=== PATIENT | female | born 1985 | race Caucasian/White ===

== ENCOUNTER → 2016-07-22 | Outpatient (REF) | payer BC ==
[2016-07-22 13:46] LABS: MEAN CORPUSCULAR HEMOGLOBIN 28.6 pg (27.0-33.0); MEAN CORPUSCULAR HGB CONC 32.6 g/dl (32.0-36.5); MEAN CORPUSCULAR VOLUME 87.8 fl (80.0-96.0); RED CELL DISTRIBUTION WIDTH 12.6 % (11.5-14.5); WHITE BLOOD COUNT 5.6 K/mm3 (4.0-10.0)
[2016-07-22 13:58] LABS: HCG, SERUM QUANTITATIVE 176 MIU/ML
[2016-07-22 14:06] LABS: CONTROL LINE INT CTR LINE PRESENT; HIV SCRN NEGATIVE (NEGATIVE); HIV SCRN1 NEGATIVE (NEGATIVE)
[2016-07-22 14:19] LABS: HBsAg Prenatal NEGATIVE (NEGATIVE)
== END ==
LOC: M LAB REF 12:39
PROVIDERS: ATTEND Obstetrics & Gynecology
DX: O36.80X0 Pregnancy with inconclusive fetal viability, not applicable or unspecified (principal); Z3A.00 Weeks of gestation of pregnancy not specified

== ENCOUNTER → 2016-08-03 | Outpatient (REF) | payer BC | LOC: M LAB REF 14:17 | PROVIDERS: ATTEND Obstetrics & Gynecology | DX: O02.81 Inappropriate change in quantitative human chorionic gonadotropin (hCG) in early pregnancy (principal) ==

== ENCOUNTER → 2016-08-19 | Outpatient (REF) | payer BC | LOC: M LAB REF 13:05 | PROVIDERS: ATTEND Advanced Practice Midwife | DX: Z34.91 Encounter for supervision of normal pregnancy, unspecified, first trimester (principal) ==

== ENCOUNTER → 2016-10-14 | Outpatient (REF) | payer BC | LOC: M LAB REF 12:55 | PROVIDERS: ATTEND Obstetrics & Gynecology | DX: Z31.430 Encounter of female for testing for genetic disease carrier status for procreative management (principal) ==

== ENCOUNTER → 2016-11-11 | Outpatient (REF) | payer BC | LOC: M LAB REF 12:21 | PROVIDERS: ATTEND Advanced Practice Midwife | DX: Z34.82 Encounter for supervision of other normal pregnancy, second trimester (principal) ==

== ENCOUNTER → 2016-12-30 | Outpatient (CLI) | payer BC ==
[2016-12-30 15:24] LABS: MEAN CORPUSCULAR HEMOGLOBIN 27.9 pg (27.0-33.0); MEAN CORPUSCULAR VOLUME 84.4 fl (80.0-96.0); RED CELL DISTRIBUTION WIDTH 12.9 % (11.5-14.5)
[2017-01-02 10:55] LABS: WHITE BLOOD COUNT 10.2 K/mm3 (4.0-10.0)
== END ==
LOC: M LAB 13:41
PROVIDERS: ATTEND Obstetrics & Gynecology
DX: Z34.82 Encounter for supervision of other normal pregnancy, second trimester (principal)

== ENCOUNTER 2017-04-02 06:13 | Inpatient (IN) | payer BC ==
[~2017-04-02] VITALS: Ht 162.6 cm; Wt 80.2 kg
[2017-04-02] VITALS (30 sets, daily range): BP systolic 73–137; BP diastolic 47–84
[2017-04-02] MEDS ORDERED: LUNE2TAB23 PO (07:12)
[2017-04-02 07:40] LABS: BASO # 0.1 10^3/uL (0.0-0.2); BASO % 0.5 % (0.0-1.0); EOS # 0.1 10^3/uL (0.0-0.50); EOS % 0.7 % (0.0-3.0); IMMATURE GRANULOCYTE % 0.7 % (0-0); LYMPH # 2.2 10^3/uL (1.5-4.5); LYMPH % 20.1 % (24.0-44.0); MEAN CORPUSCULAR HEMOGLOBIN 23.6 pg (27.0-33.0); MEAN CORPUSCULAR HGB CONC 31.1 g/dl (32.0-36.5); MEAN CORPUSCULAR VOLUME 75.9 fl (80.0-96.0); MONO # 0.8 10^3/uL (0.0-0.8); MONO % 7.1 % (0.0-5.0); NEUTROPHILS # 7.6 10^3/uL (1.8-7.7); NEUTROPHILS % 70.9 % (36.0-66.0); PLATELET COUNT, AUTOMATED 254 10^3/uL (150-450); RED CELL DISTRIBUTION WIDTH 17.4 % (11.5-14.5); WHITE BLOOD COUNT 10.7 10^3/uL (4.0-10.0)
[2017-04-02] MEDS ORDERED: LACTATED RINGER'S 1000 ML IV STA (08:48)
[2017-04-02] MEDS ORDERED: LR 1,000 ML IV SCH (09:16)
[2017-04-02] MEDS ORDERED: OXYTOCIN 30 UNITS IN 0.9% NaCl 500ML IV BAG (J2590) As Ordered ONE (09:18)
[2017-04-02] MEDS ORDERED: OXYTOCIN DRIP 30 UNITS in APPROPRIATE DILUENT 1 EA IV SCH ×2 (09:30→19:12)
--- NOTE | 2017-04-02 10:05 | HPEPDOC ---
Obstetrical History & Physical General Date of Admission Apr 02, 2017 at 06:13 Primary Care Physician: RENE MCGILL CNM History of Present Illness Patient is a 28-year-old female who is a at 40 weeks 5 days with an SHALA of 03/28/17 based off of her LMP and consistent with her 1st trimester ultrasound. She initiated care in her 1st trimester at [facility]. Her care h been uncomplicated. She was seen at the [facility] for evidence in her anatomy ultrasound of a hemivertebrae. A complete and detailed anatomical survey was normal at the [facility]. She presents to L&D for induction of labor. Reports active movement. Denies contractions, leaking of fluid, or vaginal bleeding. Chief Complaint: Induction of labor Information Provided By: Patient Age: 31 : 3 Term: 1 Pre-term: 0 Abortions: 1 Livin Care Care: Good Care Dating Final EDC: Mar 28, 2017 Final EDC by: LMP LMP: Jun 21, 2016 EGA at Admission: 40.5 Antepartum Course Diagnos(e)s Anemia Height (inches): 64 Pre- weight (lbs.): 144 Admission Weight (lbs.): 172 Change in Weight (lbs.): 28 Past Medical History Past Obstetrical History : Past Obstetrical History: Multigravida Gestation: 41 Type of Delivery: Spontaneous Vaginal Del. (May 2009) Sex of : Female (weighting 8 lbs 1 oz. ) Complications: No FAMILY NURSE History: Spontaneous (November 2014 SAB 5 weeks), Abnormal Pap (2000) , History of STD (chlamydia 2003) Past Medical History Surgical History: Denies/None Family History Significant Family History: Cancer, Hypertension Social History Marital Status: Single Family situation: Spouse/partner home Psychosocial History: Depression (took celexa from 2014 to 2016) * Smoker: non-smoker Alcohol: Denies Drugs: denies Abuse Violence Screening Have you been hit/kicked/slapp: No Have you been sexually assault: No Imunizations Tdap status: declined Influenza Status: declined Allergies Coded Allergies: No Known Drug Allergy (Verified Allergy, Unknown, 08/06/12) Medications Scheduled Eszopiclone (Lunesta) 2 Mg Tab, 2 MG PO DAILY Physical Examination Physical Examination GENERAL: Alert and oriented times three. BREAST: . ABDOMEN: Gravid and non-tender to touch. FETUS: Is vertex (VTX) by sterile vaginal examination (SVE), fetus is vertex ( VTX) by German. HEART RATE: Regular rate and rhythm. LUNGS: Clear to auscultation (CTA). EXTREMITIES: No edema. No clonus. Deep tendon reflexes (DTRs) + . Vital Signs/I&O Vital Signs Date Time Temp Pulse Resp B/P (MAP) Pulse Ox O2 Delivery O2 Flow Rate FiO2 04/02/17 08:14 71 18 110/72 (85) 04/02/17 07:39 97.3 I&O- Last 24 Hours up to 6 AM 04/03/17 06:00 Intake Total 100 ml Output Total 200 ml Balance -100 ml Laboratory Data 24H LABS Laboratory Tests 2 04/02/17 06:34: Serology Scanned Report Hepatitis B Testing 04/02/17 07:34: Immature Granulocyte % (Auto) 0.7H, White Blood Count 10.7H, Red Blood Count 4.28, Hemoglobin 10.1L, Hematocrit 32.5L, Mean Corpuscular Volume 75.9L, Mean Corpuscular Hemoglobin 23.6L, Mean Corpuscular Hemoglobin Concent 31.1L, Red Cell Distribution Width 17.4H, Platelet Count 254, Neutrophils (%) (Auto) 70.9H , Lymphocytes (%) (Auto) 20.1L, Monocytes (%) (Auto) 7.1H, Eosinophils (%) (Auto ) 0.7, Basophils (%) (Auto) 0.5, Neutrophils # (Auto) 7.6, Lymphocytes # (Auto) 2.2, Monocytes # (Auto) 0.8, Eosinophils # (Auto) 0.1, Basophils # (Auto) 0.1, Immature Granulocyte # (Auto) 0.1H, Nucleated Red Blood Cells % (auto) 0.0 04/02/17 07:58: CBC/BMP Laboratory Tests 04/02/17 07:34 Red Blood Count 4.28, Mean Corpuscular Volume 75.9 L, Mean Corpuscular Hemoglobin 23.6 L, Mean Corpuscular Hemoglobin Concent 31.1 L, Red Cell Distribution Width 17.4 H, Neutrophils (%) (Auto) 70.9 H, Lymphocytes (%) (Auto ) 20.1 L, Monocytes (%) (Auto) 7.1 H, Eosinophils (%) (Auto) 0.7, Basophils (%) (Auto) 0.5, Neutrophils # (Auto) 7.6, Lymphocytes # (Auto) 2.2, Monocytes # ( Auto) 0.8, Eosinophils # (Auto) 0.1, Basophils # (Auto) 0.1 Urine Culture: No Growth Pertinent Laboratoy Data Blood Type: O+ RBC Antibody Screen: Negative HIV: Negative Hepatitis B: Negative Hepatitis C: Negative Rapid Plasma Reagin: Nonreactive Rubella: Immune Chlamydia/Gonorrhea: Negative Group B Streptococcus: Negative Quad Screen Test: Negative Glucose Tolerance Test: 115 Anatomy Ultrasound Ultrasound Date: Mar 24, 2017 Placenta Location: Anterior Normal Anatomy: Yes Placenta Previa: No Estimated Weight (grams): 4296 (GUILLERMO: 23.8 cm) Steroid Therapy Steroid Therapy: No Vaginal Examination Dilation: 3 cm Effacement: 80+% Station: -3 Cervical Consistency: Soft Cervical Position: Anterior Presentation: Cephalic presentation Position: Vertex (occiput) Assessment Heart Rate (FHR): 135 Variability: Moderate Accelerations: Positive Decelerations: None Tocometer Contractions: Yes Frequency: irregular Duration: greater than 60 seconds Strength: palpated as mild Multi-drug resistant Organism: No history of MDRO Assessment/Plan Assessment IUP at 40.5 weeks gestation GBS negative Induction of labor-elective Category I FHR tracing Plan Admit to L&D. Counseled on risks, benefits, and alternatives of induction of labor. Diet: clears. Group B Streptococcus negative. Labs and intravenous per unit protocol. Pitocin ordered for induction. Lactated Ringers per order. Anticipate cervical change and normal spontaneous delivery. RENE MCGILL CNM Apr 02, 2017 10:04
--- NOTE | 2017-04-02 12:15 | IPNPDOC ---
Text Note Date of Service The patient was seen on 04/02/17. NOTE SUBJECTIVE: Patient reports feeling contractions. Desires and epidural. OBJECTIVE: VS stable. FHR: 140, moderate variability, positive accelerations- 15x15, variable deceleration noted after rupture. Contractions every 2 to 5 minutes. AROM after consent to a large amount of clear fluid. SVE: 5/100/-2. ASSESSMENT: IUP at 40.5 weeks gestation, active labor PLAN: Patient to receive an epidural. Anticipate cervical change and . VS,Fishbone, I+O VS, Fishbone, I+O Laboratory Tests 04/02/17 07:34 Red Blood Count 4.28, Mean Corpuscular Volume 75.9 L, Mean Corpuscular Hemoglobin 23.6 L, Mean Corpuscular Hemoglobin Concent 31.1 L, Red Cell Distribution Width 17.4 H, Neutrophils (%) (Auto) 70.9 H, Lymphocytes (%) (Auto ) 20.1 L, Monocytes (%) (Auto) 7.1 H, Eosinophils (%) (Auto) 0.7, Basophils (%) (Auto) 0.5, Neutrophils # (Auto) 7.6, Lymphocytes # (Auto) 2.2, Monocytes # ( Auto) 0.8, Eosinophils # (Auto) 0.1, Basophils # (Auto) 0.1 Vital Signs Date Time Temp Pulse Resp B/P (MAP) Pulse Ox O2 Delivery O2 Flow Rate FiO2 04/02/17 11:00 78 20 115/75 (88) 04/02/17 10:30 97.5 I&O- Last 24 Hours up to 6 AM 04/03/17 06:00 Intake Total 2100 ml Output Total 200 ml Balance 1900 ml RENE MCGILL CNM Apr 02, 2017 12:15
[2017-04-02] MEDS ORDERED: FENTANYL 2MCG/ML ROPIVACAINE 0.2% IN 0.9% NACL 200ML IVBAG As Ordered ONE (12:16)
[2017-04-02] MEDS ORDERED: NALOXONE INJ 0.4 MG/1 ML VIAL (J2310) IV PRN (14:00)
[2017-04-02] MEDS ORDERED: diphenhydrAMINE INJ 50MG/ML VIAL (J1200) IV PRN (14:00)
[2017-04-02] MEDS ORDERED: LACTATED RINGER'S 1000 ML IV PRN (14:00)
[2017-04-02] MEDS ORDERED: EPIDURAL/PCA KEYS XX PRN (14:00)
[2017-04-02] MEDS ORDERED: ePHEDrine SULFATE 25 MG/5 ML(5MG/ML) SYRINGE IV PRN (14:00)
[2017-04-02] MEDS ORDERED: EPIDURAL COMMENT XX SCH (14:00)
[2017-04-02] MEDS ORDERED: REFRIGERATOR IV KEYS XX PRN (14:00)
[2017-04-02] MEDS ORDERED: FENTANYL/ROPIVACAINE/NACL BAG 200 ML EPIDURAL SCH (14:00)
[2017-04-02] MEDS ORDERED: ONDANSETRON 4MG/2ML VIAL (J2405) IV PRN (14:00)
[2017-04-02] MEDS: LR 1,000 ML IV SCH ×2 (18:08→18:09)
[2017-04-02] MEDS ORDERED: METHYLERGONOVINE MALEATE 0.2 MG/ML VIAL (J2210) As Ordered ONE (18:48)
[2017-04-02] MEDS ORDERED: DIBUCAINE 1% OINTMENT 30GM TOP PRN (19:15)
[2017-04-02] MEDS ORDERED: MEASLES,MUMPS,RUBELLA VACCINE INJ (MMR-II) (90707) SC SCH (19:15)
[2017-04-02] MEDS ORDERED: METHYLERGONOVINE MALEATE 0.2 MG/ML VIAL (J2210) IM ONE (19:15)
[2017-04-02] MEDS ORDERED: DOCUSATE SODIUM 100 MG CAP PO PRN (19:15)
[2017-04-02] MEDS ORDERED: ACETAMINOPHEN 500 MG TAB PO PRN (19:15)
[2017-04-02] MEDS ORDERED: RHOGAM 300 MCG (1500 IU) INJ (J2790) IM SCH (19:15)
[2017-04-02] MEDS: IBUPROFEN 800 MG TAB PO PRN (23:31)
[2017-04-03 06:18] VITALS: BP 101/56
[2017-04-03] MEDS: PRENATAL VITAMINS CHEWABLE TABLET PO SCH (08:42)
[2017-04-03] MEDS: IBUPROFEN 800 MG TAB PO PRN (09:36)
[2017-04-03 18:27] VITALS: BP 105/66
[2017-04-04 05:59] VITALS: BP 109/68
[2017-04-04] MEDS: PRENATAL VITAMINS CHEWABLE TABLET PO SCH (08:49)
[2017-04-04] MEDS ORDERED: ACET50TA PO (09:14)
[2017-04-04] MEDS ORDERED: IBUP-1114 PO (09:14)
[2017-04-04] MEDS ORDERED: PRENTAB9 PO (09:14)
--- NOTE | 2017-04-04 11:02 | DNPDOC ---
[facility] Delivery Note Delivery Note DATE OF DELIVERY: 04/02/17 at 1844 PROCEDURE: Spontaneous vaginal delivery. PROVIDER: Rene Madrigal CNM, REBECCA ANESTHESIA: epidural. ESTIMATED BLOOD LOSS: 350 mL. FINDINGS: 11 pounds 3 ounces, 5070 grams, female , Score 9/9, multiple variable decelerations, macrosomia. DELIVERY SUMMARY: Patient is a 31-year-old female who present for an elective induction of labor at 40.5 weeks gestation. Pitocin (125cc) was used to induce labor. Patient received an epidural for pain management. She progressed to fully dilated at 1559. After 2 hours of effective pushing, Dr. Villela was notified to come in to assess patient. The patient pushed to a live female in the AMBROSE position with restitution to ROT at 1844. The anterior should delivered with ease and the corpus immediately followed. The baby was placed on the maternal abdomen active and crying. The cord was clamped after 1 minute times 2 and cut by the FOB. A 3 vessel cord was noted. The placenta delivered spontaneously and intact at 1852. Uterine hemostasis was achieved via rapid infusion of IV Pitocin and fundal massage. The vagina and perineum were inspected and found to have a perineal abrasion with an inclusion cyst. The inclusion cyst was drained and a figure 8 was placed with a 3.0 vicryl rapide at the site of the drained cyst. IM methergine given into right thigh due to a consistent dripping of blood and prophylactic due to a macrosomic baby. Mom plans to breastfeed baby. Both mom and baby are in stable condition. RENE MADRIGAL CNM Apr 04, 2017 11:02
== END 2017-04-04 14:00 | disposition home or self-care (01) | DRG 560 ==
LOC: M LDI 06:13 → M OBS 20:46
PROVIDERS: ADMIT Advanced Practice Midwife; ATTEND Advanced Practice Midwife
PROC: 3E033VJ Introduction of Other Hormone into Peripheral Vein, Percutaneous Approach (ICD-10-PCS; principal; 2017-04-02)
PROC: 10907ZC Drainage of Amniotic Fluid, Therapeutic from Products of Conception, Via Natural or Artificial Opening (ICD-10-PCS; 2017-04-02)
PROC: 10E0XZZ Delivery of Products of Conception, External Approach (ICD-10-PCS; 2017-04-02)
PROC: 0HQ9XZZ Repair Perineum Skin, External Approach (ICD-10-PCS; 2017-04-02)
DX: O48.0 Post-term pregnancy (principal); O70.0 First degree perineal laceration during delivery; Z37.0 Single live birth; Z3A.40 40 weeks gestation of pregnancy

== ENCOUNTER → 2018-03-15 | Outpatient (REF) | payer BC ==
[2018-03-15 14:34] LABS: HEMATOCRIT 42.9 % (36.0-47.0); HEMOGLOBIN 13.9 g/dl (12.0-15.5); MEAN CORPUSCULAR HEMOGLOBIN 28.5 pg (27.0-33.0); MEAN CORPUSCULAR HGB CONC 32.4 g/dl (32.0-36.5); MEAN CORPUSCULAR VOLUME 87.9 fl (80.0-96.0); PLATELET COUNT, AUTOMATED 291 10^3/uL (150-450); RED BLOOD COUNT 4.88 10^6/uL (4.00-5.40); RED CELL DISTRIBUTION WIDTH 13.5 % (11.5-14.5); WHITE BLOOD COUNT 10.4 10^3/uL (4.0-10.0)
[2018-03-15 15:28] LABS: HCG, SERUM QUANTITATIVE 51967 MIU/ML
[2018-03-16 12:21] LABS: RUBELLA IgG QUALITATIVE IMMUNE (IMMUNE)
[2018-03-16 12:22] LABS: HBsAg Prenatal NEGATIVE (NEGATIVE)
[2018-03-16 12:49] LABS: HEPATITIS C VIRUS ABY INDEX 0.1 INDEX (<0.8)
[2018-03-16 12:50] LABS: HIV 1&2 SCREEN CENTAUR NEGATIVE (NEGATIVE)
== END ==
LOC: M LAB REF 13:14
DX: O36.80X0 Pregnancy with inconclusive fetal viability, not applicable or unspecified (principal); Z32.01 Encounter for pregnancy test, result positive
CPT/HCPCS: 86762

== ENCOUNTER → 2018-08-02 | Outpatient (CLI) | payer BC ==
[~2018-08-02] MED LIST: IBUP-1114 PO; LUNE2TAB23 PO; MAPA500T2 PO; PRENTAB9 PO
[2018-08-02 12:41] LABS: HEMATOCRIT 31.5 % (36.0-47.0); HEMOGLOBIN 10.3 g/dl (12.0-15.5); MEAN CORPUSCULAR HEMOGLOBIN 28.5 pg (27.0-33.0); MEAN CORPUSCULAR HGB CONC 32.7 g/dl (32.0-36.5); MEAN CORPUSCULAR VOLUME 87.3 fl (80.0-96.0); PLATELET COUNT, AUTOMATED 211 10^3/uL (150-450); RED BLOOD COUNT 3.61 10^6/uL (4.00-5.40); WHITE BLOOD COUNT 7.9 10^3/uL (4.0-10.0)
== END ==
LOC: M LAB 11:04
PROVIDERS: ATTEND Obstetrics & Gynecology
DX: Z34.82 Encounter for supervision of other normal pregnancy, second trimester (principal); Z3A.00 Weeks of gestation of pregnancy not specified

== ENCOUNTER → 2018-08-08 | Outpatient (CLI) | payer BC | LOC: M LAB 08:06 | PROVIDERS: ATTEND Obstetrics & Gynecology | DX: R73.02 Impaired glucose tolerance (oral) (principal) ==

== ENCOUNTER → 2018-10-04 | Outpatient (REF) | payer BC | LOC: M LAB REF 15:41 | PROVIDERS: ATTEND Obstetrics & Gynecology | DX: Z34.83 Encounter for supervision of other normal pregnancy, third trimester (principal) ==

== ENCOUNTER 2018-10-31 18:12 | Inpatient (IN) | payer BC ==
[~2018-10-31] VITALS: Ht 162.6 cm; Wt 71.0 kg
[2018-10-31] VITALS (21 sets, daily range): BP systolic 91–134; BP diastolic 50–77
[2018-10-31] MEDS ORDERED: TUMS500C PO (18:37)
[2018-10-31] MEDS ORDERED: LR 1,000 ML IV SCH (18:41)
[2018-10-31] MEDS ORDERED: LACTATED RINGER'S 1000 ML IV STA (18:41)
[2018-10-31] MEDS ORDERED: OXYTOCIN DRIP 30 UNITS in APPROPRIATE DILUENT 1 EA IV SCH ×2 (18:45→23:06)
[2018-10-31] MEDS ORDERED: LUNE3TAB36 PO (19:20)
[2018-10-31 19:49] LABS: HEMATOCRIT 30.1 % (36.0-47.0); HEMOGLOBIN 9.3 g/dl (12.0-15.5); MEAN CORPUSCULAR HEMOGLOBIN 23.8 pg (27.0-33.0); MEAN CORPUSCULAR HGB CONC 30.9 g/dl (32.0-36.5); PLATELET COUNT, AUTOMATED 301 10^3/uL (150-450); RED BLOOD COUNT 3.91 10^6/uL (4.00-5.40); WHITE BLOOD COUNT 17.8 10^3/uL (4.0-10.0)
[2018-10-31] MEDS ORDERED: FENTANYL 2MCG/ML ROPIVACAINE 0.2% IN 0.9% NACL 100ML IVBAG As Ordered ONE (20:13)
[2018-10-31] MEDS ORDERED: REFRIGERATOR IV KEYS XX PRN (20:30)
[2018-10-31] MEDS ORDERED: FENTANYL/ROPIVACAINE/NACL BAG 100 ML EPIDURAL SCH (20:30)
[2018-10-31] MEDS ORDERED: ePHEDrine SULFATE 25 MG/5 ML(5MG/ML) SYRINGE IV PRN (20:30)
[2018-10-31] MEDS ORDERED: NALOXONE INJ 0.4 MG/1 ML VIAL (J2310) IV PRN (20:30)
[2018-10-31] MEDS ORDERED: EPIDURAL COMMENT XX SCH (20:30)
[2018-10-31] MEDS ORDERED: EPIDURAL/PCA KEYS XX PRN (20:30)
[2018-10-31] MEDS ORDERED: ONDANSETRON 4MG/2ML VIAL (J2405) IV PRN (20:30)
[2018-10-31] MEDS ORDERED: LACTATED RINGER'S 1000 ML IV PRN (20:30)
[2018-10-31] MEDS ORDERED: diphenhydrAMINE INJ 50MG/ML VIAL (J1200) IV PRN (20:30)
[2018-10-31] MEDS ORDERED: IBUP80TA PO (23:12)
[2018-10-31] MEDS ORDERED: DIBUCAINE 1% OINTMENT 30GM TOP PRN (23:15)
[2018-10-31] MEDS ORDERED: METHYLERGONOVINE MALEATE 0.2 MG TAB PO PRN (23:15)
[2018-10-31] MEDS ORDERED: DOCUSATE SODIUM 100 MG CAP PO PRN (23:15)
[2018-10-31] MEDS ORDERED: MEASLES,MUMPS,RUBELLA VACCINE INJ (MMR-II) (90707) SC SCH (23:15)
[2018-10-31] MEDS ORDERED: RHOGAM 300 MCG (1500 IU) INJ (J2790) IM SCH (23:15)
[2018-10-31] MEDS ORDERED: IBUPROFEN 800 MG TAB PO PRN (23:15)
[2018-10-31] MEDS ORDERED: IBUPROFEN 600 MG TAB PO PRN (23:15)
[2018-10-31] MEDS ORDERED: ACETAMINOPHEN TAB 650MG DOSE (2X325MG) PO PRN (23:15)
[2018-10-31] MEDS ORDERED: ACETAMINOPHEN 500 MG TAB PO PRN (23:15)
[2018-10-31 23:32] LABS: CORD GAS ABE A -2.5; CORD GAS HCO3 A 24.6 MEQ/L; CORD GAS O2 SAT A 63.3 %; CORD GAS PCO2 A 50.8 mmHg; CORD GAS PO2 A 27.4 mmHg; CORD GAS SBC A 21.5 MEQ/L; CORD GAS TCO2 A 26.2 MEQ/L
[2018-10-31 23:33] LABS: CORD GAS PH A 7.303 UNITS
[2018-10-31 23:36] LABS: CORD GAS ABE V -2.7; CORD GAS PCO2 V 38.2 mmHg; CORD GAS PH V 7.378 UNITS; CORD GAS PO2 V 28.9 mmHg; CORD GAS SBC V 21.6 MEQ/L; CORD GAS TCO2 V 23.2 MEQ/L
[2018-10-31] MEDS ORDERED: SLF 3 ML SYR IV PRN (23:45)
[2018-11-01 00:06] VITALS: BP 104/60
[2018-11-01 00:21] VITALS: BP 103/60
[2018-11-01 00:36] VITALS: BP 108/59
[2018-11-01 05:28] VITALS: BP_SYST 105; BP_SYST 117; BP_DIAS 66; BP_DIAS 73
[2018-11-01] MEDS: SLF 3 ML SYR IV SCH ×2 (06:20→18:23)
--- NOTE | 2018-11-01 07:14 | HPE ---
DATE OF ADMISSION: 10/31/2018 Yudith is a 32-year-old female, 4, para 2-0-1-2, with an expected date of confinement (EDC) of 11/04/2018, estimated gestational age (EGA) 39-3/7 weeks gestation who is being admitted after presenting with complaints of contractions and in active labor. Upon admission, no bleeding, no leakage of fluid, good movement, contractions every 4-5 minutes. record reviewed which was essentially unremarkable. LABS: Blood type is O+, rubella immune, hepatitis negative, HIV negative, GC and chlamydia negative, one hour sugar testing was within normal limits. Her GBS is negative. PAST MEDICAL HISTORY: Significant for insomnia and depression. PAST SURGICAL HISTORY: Denies. SOCIAL HISTORY: Denies any alcohol or drugs or cigarette smoking. She is a former smoker. MEDICATIONS: vitamin. ALLERGIES: No known drug allergies. PHYSICAL EXAMINATION: HEENT: Grossly within normal limits. Abdomen: Soft, nontender, nondistended. Extremities: No clubbing, cyanosis or edema. Vaginal Exam: 6 cm dilated, 80% effaced, fetus at -2 station, in a vertex position with a bulging membrane. ASSESSMENT: Intrauterine at 39-3/7 weeks gestation in active labor. PLAN: Admit to labor and delivery. Routine labs sent. Pain management discussed. The patient opts for an epidural. Will continue to monitor. Anticipate delivery.
--- NOTE | 2018-11-01 07:29 | DN ---
DATE OF DELIVERY: 10/31/2018 Yudith is a 32-year-old female 4, para 2-0-1-2 who is admitted at 39-3/7 weeks gestation in active labor. She progressed to fully dilated and delivered a live female in left occiput anterior position over an intact perineum. scores 9 and 9. weight 8 pounds 11 ounces. Placenta delivered spontaneously intact. Three-vessel cord. Perineum, vagina and cervix inspected. No laceration noted. Estimated blood loss 250 mL. Both mother and baby in stable condition.
[2018-11-01] MEDS: PRENATAL VITAMINS CHEWABLE TABLET PO SCH (09:04)
[2018-11-01 18:00] VITALS: BP 108/59
[2018-11-02 06:05] VITALS: BP 103/66
[2018-11-02] MEDS: PRENATAL VITAMINS CHEWABLE TABLET PO SCH (08:15)
== END 2018-11-02 12:30 | disposition home or self-care (01) | DRG 560 ==
LOC: M LDO 18:12 → M LDI 19:22 → M OBS 11-01 01:13
PROVIDERS: ADMIT Obstetrics & Gynecology; ATTEND Obstetrics & Gynecology
PROC: 10E0XZZ Delivery of Products of Conception, External Approach (ICD-10-PCS; principal; 2018-10-31)
DX: O80 Encounter for full-term uncomplicated delivery (principal); Z37.0 Single live birth; Z3A.39 39 weeks gestation of pregnancy

== ENCOUNTER → 2023-06-07 | Outpatient (REF) | payer BC ==
[~2023-06-07] MED LIST changes: +IBUP80TA PO; -LUNE2TAB23 PO; +LUNE2TAB28 PO; +LUNE3TAB50 PO; +TUMS500C PO
== END ==
LOC: M SFHCWAGY 17:49
PROVIDERS: ATTEND Nurse Practitioner Family
DX: Z12.4 Encounter for screening for malignant neoplasm of cervix (principal); Z11.51 Encounter for screening for human papillomavirus (HPV)

== ENCOUNTER → 2023-06-13 | Outpatient (CLI) | payer BC | LOC: M WHC 10:16 | PROVIDERS: ATTEND Nurse Practitioner Family | DX: N64.4 Mastodynia (principal) ==

== ENCOUNTER → 2023-08-10 | Outpatient (REF) | payer BC | LOC: M SFHCWAGY 13:06 | PROVIDERS: ATTEND Nurse Practitioner Family | DX: Z12.4 Encounter for screening for malignant neoplasm of cervix (principal); R87.615 Unsatisfactory cytologic smear of cervix ==

== ENCOUNTER 2023-09-26 11:11 | Emergency (ER) | payer BC ==
[~2023-09-26] VITALS: Ht 162.6 cm; Wt 61.8 kg
[2023-09-26 12:04] LABS: BASO % 0.7 % (0.0-1.0); EOS # 0.1 10^3/uL (0.0-0.5); EOS % 1.7 % (0.0-3.0); HEMATOCRIT 22.8 % (36.0-47.0); LYMPH # 1.9 10^3/uL (1.5-5.0); LYMPH % 31.7 % (24.0-44.0); MEAN CORPUSCULAR HEMOGLOBIN 22.2 pg (27.0-33.0); MEAN CORPUSCULAR HGB CONC 29.4 g/dl (32.0-36.5); MEAN CORPUSCULAR VOLUME 75.5 fl (80.0-96.0); MONO # 0.4 10^3/uL (0.0-0.8); MONO % 7.1 % (2.0-8.0); NEUTROPHILS # 3.5 10^3/uL (1.5-8.5); NEUTROPHILS % 58.5 % (36.0-66.0); PLATELET COUNT, AUTOMATED 341 10^3/uL (150-450); RED BLOOD COUNT 3.02 10^6/uL (4.00-5.40); WHITE BLOOD COUNT 5.9 10^3/uL (4.0-10.0)
[2023-09-26] MEDS ORDERED: ESCITALOPRAM (12:04)
[2023-09-26] MEDS ORDERED: IRON65TA2 PO (12:05)
[2023-09-26 12:15] LABS: HEMOGLOBIN 6.7 g/dl (12.0-15.5)
[2023-09-26 12:33] LABS: BLOOD UREA NITROGEN 7 MG/DL (9-23); CALCIUM LEVEL 8.4 MG/DL (8.5-10.1); CARBON DIOXIDE LEVEL 27 MMOL/L (20-31); CHLORIDE LEVEL 108 MMOL/L (98-107); CREATININE FOR GFR 0.61 MG/DL (0.55-1.30); GLOMERULAR FILTRATION RATE > 60.0 (>60); GLUCOSE, FASTING 82 MG/DL (60-100); POTASSIUM SERUM 3.9 MMOL/L (3.5-5.1); SODIUM LEVEL 140 MMOL/L (136-145)
[2023-09-26 13:29] VITALS: BP 116/57; TEMP 98.1; O2SAT 100
[2023-09-26 13:45] VITALS: BP 99/58; TEMP 97.7; O2SAT 100
[2023-09-26 14:00] VITALS: BP 100/59; TEMP 98.4; O2SAT 99
[2023-09-26 14:15] VITALS: BP 101/60; TEMP 98.1; O2SAT 100
[2023-09-26 15:26] VITALS: BP 101/65; TEMP 98.4; O2SAT 100
[2023-09-26] MEDS ORDERED: PROV10TA PO (15:45)
[2023-09-26 16:00] VITALS: BP 105/62; TEMP 98.7; O2SAT 100
[2023-09-27] MEDS ORDERED: ZOLP12.535 (12:50)
[2023-09-27] MEDS ORDERED: MODA100T13 (12:50)
== END 2023-09-26 16:03 | disposition home or self-care (01) ==
LOC: M ED 11:11
DX: D64.9 Anemia, unspecified (principal); N93.9 Abnormal uterine and vaginal bleeding, unspecified; F10.10 Alcohol abuse, uncomplicated; Z79.899 Other long term (current) drug therapy
CPT/HCPCS: 36415; 36430; 76830; 76856; 80048; 84702; 85025; 86850; 86900; 86901; 86920; 93976; 99284; P9016

== ENCOUNTER 2023-09-27 12:32 | Emergency (ER) | payer BC ==
[~2023-09-27] VITALS: Ht 162.6 cm; Wt 61.5 kg
[~2023-09-27 12:32] MED LIST changes: +ESCITALOPRAM; +IRON65TA2 PO; +PROV10TA PO
[2023-09-27] MEDS ORDERED: MODA100T13 (12:50)
[2023-09-27] MEDS ORDERED: ZOLP12.535 (12:50)
[2023-09-27 13:45] LABS: BASO # 0.1 10^3/uL (0.0-0.2); BASO % 0.7 % (0.0-1.0); EOS # 0.1 10^3/uL (0.0-0.5); EOS % 1.8 % (0.0-3.0); HEMATOCRIT 25.2 % (36.0-47.0); HEMOGLOBIN 7.8 g/dl (12.0-15.5); LYMPH # 2.2 10^3/uL (1.5-5.0); LYMPH % 29.6 % (24.0-44.0); MEAN CORPUSCULAR HEMOGLOBIN 24.1 pg (27.0-33.0); MONO # 0.5 10^3/uL (0.0-0.8); MONO % 6.3 % (2.0-8.0); NEUTROPHILS # 4.6 10^3/uL (1.5-8.5); NEUTROPHILS % 61.3 % (36.0-66.0); PLATELET COUNT, AUTOMATED 321 10^3/uL (150-450); RED BLOOD COUNT 3.23 10^6/uL (4.00-5.40); WHITE BLOOD COUNT 7.4 10^3/uL (4.0-10.0)
[2023-09-27 13:56] LABS: INR 1.01
[2023-09-27 14:04] VITALS: BP 108/71; TEMP 98.9; O2SAT 100
== END 2023-09-27 14:19 | disposition home or self-care (01) ==
LOC: M ED 12:32
DX: D50.9 Iron deficiency anemia, unspecified (principal); N80.9 Endometriosis, unspecified; F10.10 Alcohol abuse, uncomplicated; Z79.899 Other long term (current) drug therapy

== ENCOUNTER 2024-01-01 06:12 | Day surgery (SDC) | payer BC ==
[~2024-01-01] VITALS: Ht 162.6 cm; Wt 63.0 kg
[~2024-01-01 06:12] MED LIST changes: +LEXA1TAB2 PO; +MODA100T13; +RAME8TAB2 PO; +ZOLP12.535 PO
[2024-01-01] MEDS ORDERED: LR 1,000 ML IV SCH (07:00)
[2024-01-01 07:09] LABS: HEMATOCRIT 34.7 % (36.0-47.0); HEMOGLOBIN 10.4 g/dl (12.0-15.5); MEAN CORPUSCULAR HEMOGLOBIN 21.9 pg (27.0-33.0); MEAN CORPUSCULAR VOLUME 73.1 fl (80.0-96.0); PLATELET COUNT, AUTOMATED 338 10^3/uL (150-450); RED BLOOD COUNT 4.75 10^6/uL (4.00-5.40); WHITE BLOOD COUNT 5.7 10^3/uL (4.0-10.0)
[2024-01-01] MEDS ORDERED: MIDAZOLAM INJ 2MG/2ML VIAL As Ordered ONE (07:09)
[2024-01-01] MEDS ORDERED: ROCURONIUM BROMIDE 50MG/5ML VIAL As Ordered ONE (07:09)
[2024-01-01] MEDS ORDERED: propofoL 200 MG/20 ML VIAL As Ordered ONE (07:09)
[2024-01-01] MEDS ORDERED: LIDOCAINE 2% 100MG/5ML SDV (FOR ANES.) As Ordered ONE (07:09)
[2024-01-01] MEDS ORDERED: SUGAMMADEX SODIUM 500 MG/5 ML VIAL (BRIDION) As Ordered ONE (07:09)
[2024-01-01] MEDS ORDERED: fentaNYL 100 MCG/2 ML INJECTION As Ordered ONE (07:09)
[2024-01-01] MEDS ORDERED: ONDANSETRON 4MG 2ML VIAL As Ordered ONE (07:10)
[2024-01-01] MEDS ORDERED: KETOROLAC 60MG 2ML VIAL As Ordered ONE (07:10)
[2024-01-01] MEDS ORDERED: ACETAMINOPHEN 1000MG 100ML IV BAG As Ordered ONE (07:10)
[2024-01-01] MEDS ORDERED: METHYLENE BLUE 0.5% (5MG/ML) 10 ML AMP (PROVAYBLUE) As Ordered ONE (07:14)
[2024-01-01] MEDS: SCOPOLAMINE 1MG TRANSDERMAL PATCH As Ordered ONE (07:36)
[2024-01-01] MEDS: ceFAZolin SOD 2 GM in IV 1 EA IV ONE (07:40)
[2024-01-01] MEDS ORDERED: KETAMINE HCL 200MG/20ML VIAL As Ordered ONE (08:24)
[2024-01-01] MEDS ORDERED: ePHEDrine SULFATE 25 MG/5 ML(5MG/ML) SYRINGE As Ordered ONE (08:24)
[2024-01-01] MEDS ORDERED: PHENYLephrine 500MCG 5ML (100MCG/ML) SYRINGE As Ordered ONE (08:26)
[2024-01-01] MEDS ORDERED: HYDROmorphone HCL 2MG/ML 1ML VIAL As Ordered ONE (08:34)
[2024-01-01] MEDS ORDERED: MEPERIDINE 25 MG/ML 1ML VIAL IV PRN (09:25)
[2024-01-01] MEDS ORDERED: diphenhydrAMINE 50MG/ML VIAL IV PRN (09:25)
[2024-01-01] MEDS ORDERED: ONDANSETRON 4MG 2ML VIAL IV PRN (09:25)
[2024-01-01] MEDS ORDERED: HYDROMORPHONE HCL 0.5 MG/ 0.5 ML SYRINGE IV PRN (09:25)
[2024-01-01] MEDS ORDERED: fentaNYL 100 MCG/2 ML INJECTION IV PRN (09:25)
[2024-01-01] MEDS ORDERED: oxyCODONE 5MG TAB PO PRN (09:25)
[2024-01-01] MEDS ORDERED: PERCOCET 5MG/325MG TAB PO PRN (10:10)
[2024-01-01] MEDS: METOCLOPRAMIDE INJ 10MG/2ML VIAL IV PRN (10:16)
[2024-01-01 11:52] VITALS: BP 101/60; TEMP 97; O2SAT 98
[2024-01-01] MEDS ORDERED: KETOROLAC 30 MG/ML 1ML VIAL IV SCH (15:00)
== END 2024-01-01 11:58 | disposition home or self-care (01) ==
LOC: M SDC 06:12
PROVIDERS: ATTEND Obstetrics & Gynecology
DX: N93.9 Abnormal uterine and vaginal bleeding, unspecified (principal); N83.8 Other noninflammatory disorders of ovary, fallopian tube and broad ligament; N88.8 Other specified noninflammatory disorders of cervix uteri
CPT/HCPCS: 36415; 58571; 81025; 85027; 86850; 86900; 86901; 88307; J0131; J0665; J0690; J1100; J1170; J1885; J2250; J2371; J2405; J2765; J3010; S2900

== ENCOUNTER → 2024-06-17 | Outpatient (CLI) | payer BC | LOC: M WHC 14:35 | PROVIDERS: ATTEND Nurse Practitioner Family | DX: Z12.31 Encounter for screening mammogram for malignant neoplasm of breast (principal) ==